=== PATIENT | male | born 1955 | race Hispanic/Latino ===

== ENCOUNTER 2023-05-10 11:08 | Emergency (ER) | payer OTHER ==
[~2023-05-10] VITALS: Ht 177.8 cm; Wt 111.1 kg
[2023-05-10 11:53] VITALS: O2SAT 99
[2023-05-10] MEDS ORDERED: CEPHALEXIN500 MG PO (11:59)
[2023-05-10] MEDS ORDERED: LIDOCAINE HCL 1% LOCAL INJ 20 ML VIAL INJ ONE (12:00)
== END 2023-05-10 13:33 | disposition home or self-care (01) ==
LOC: ER 11:15
DX: S91.312A Laceration without foreign body, left foot, initial encounter (principal); W26.8XXA Contact with other sharp object(s), not elsewhere classified, initial encounter; Y93.01 Activity, walking, marching and hiking; Y92.89 Other specified places as the place of occurrence of the external cause
CPT/HCPCS: 12001; 99282; J2001; S0630